=== PATIENT | female | born 1985 | race Caucasian/White ===

== ENCOUNTER 2023-04-01 14:42 | Outpatient (AMB) | payer BC, SELFPAY ==
--- NOTE | 2023-04-01 14:44 | A.OFFVIS_ITS ---
Intake Vital Signs 3 04/01/23 14:55 Height 5 ft 2 in Weight 152 lb BMI 27.8 BP 120/60 Blood Pressure Location Lt brachial Position Sitting Intake Visit Reasons: recurrent hernia ECW Intake Note: Patient is seen in office for recurrent ventral hernia. 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 This was previously repaired without mesh in 2019 but soon after began to redevelop with a small lump occasionally noted. Over time this has become more noticeable and associated with slight discomfort. She denies nausea or vomiting but does have occasional heartburn. Her bowel habits are irregular but unchanged. She is requesting repair of this recurrent ventral hernia. [facility] Surgical History History of ventral hernia repair (06/04/18) Family History Paternal Grandmother Mouth cancer Maternal Grandfather Lung cancer Review of Systems Const All systems reviewed & are unremarkable except as noted in HPI and below Physical Exam Const General: no acute distress and well developed Orientation/consciousness: patient oriented x3 Limitations: no limitations HEENT Head: Yes normocephalic and Yes atraumatic Resp Effort & Inspection: normal respiratory effort GI Inspection: Yes normal to inspection Palpation (GI): Soft to palpation, nontender, no guarding and not rigid Percussion: Yes normal to percussion Auscultation: normal bowel sounds Abdomen image: 2 1. Ventral hernia measuring 2 cm in diameter easily reducible, nontender to palpation, no skin changes noted. Skin General skin exam: no rashes or lesions noted Neuro General: patient oriented x3 Extrem General: Yes no clubbing, cyanosis or edema Assessment & Plan Assessment & Plan (1) Recurrent ventral hernia: Code(s): K43.2 - Incisional hernia without obstruction or gangrene Plan 38-year-old female patient presenting with a recurrent ventral hernia, easily reducible with light pressure. I recommended a repair with mesh as a short-stay surgery. After discussion of the procedure, risks, and alternatives, she consents to the repair of the recurrent ventral hernia with mesh. Coding Level of Care Code New Pt Level 4 (67184) Diagnoses Recurrent ventral hernia K43.2
[2023-04-01 14:55] VITALS: BP 120/60; BMI 27.8
== END 2023-04-01 15:13 | disposition home or self-care (01) ==
PROVIDERS: PCP Family Medicine; Referring Provider Family Medicine; Visit Provider Surgery
DX: K43.2 Incisional hernia without obstruction or gangrene (principal)
CPT/HCPCS: 99204

== ENCOUNTER → 2023-04-01 14:42 | Outpatient (BNVA) | payer BC, SELFPAY | PROVIDERS: PCP Family Medicine; Visit Provider Surgery ==

== ENCOUNTER 2023-04-16 06:01 | Day surgery (SDC) | payer BC, SELFPAY ==
[2023-04-14 09:42] VITALS: BMI 27.8
--- NOTE | 2023-04-15 09:27 | HO.ANESPROP2 ---
Documented by User: Colleen Rivera NP 04/15/23 09:27 HPI - Anesthesia Eval Consult details Narrative: 38yo F for Repair Recurrent Hernia Ventral Reducible w/ mesh PMFSH Active Problems Active Problems: All Active Problems (Updated 04/01/23 @ 15:08 by Seth Nguyen MD) Recurrent ventral hernia (Acute) Family History Family History Paternal Grandmother Mouth cancer Maternal Grandfather Lung cancer Surgical History Surgical History History of ventral hernia repair (06/04/18) Social History Social History Patient Tobacco Use Status: Never used Tobacco Use of substances other than those prescribed or required for medical reasons: No Are you DNR?: No Advance Directives: No Advance Directives Information Provided: Yes Meds Allergies Allergy/AdvReac Type Severity Reaction Status Date / Time penicillin V Allergy Unknown mother is Verified 04/01/23 14:52 allergic No Known Allergies Allergy Verified 04/16/23 06:55 [No Known Allergies*] Home Medications Medication Instructions Recorded Confirmed Last Taken Type sumatriptan succinate 100 mg tablet 100 mg PO DIRECTED 11/30/21 Unknown History Exam Height,Weight and Vital Signs: Height 5 ft 2 in Weight 68.946 kg Assessment and Plan Assessment Anesthesia Assessment: Chart Reviewed Documented by User: Melvina Ram MD 04/16/23 07:30 PMFSH Active Problems Active Problems: All Active Problems (Updated 04/01/23 @ 15:08 by Seth Nguyen MD) Recurrent ventral hernia (Acute) migraine headaches Family History Family History Paternal Grandmother Mouth cancer Maternal Grandfather Lung cancer Surgical History Surgical History History of ventral hernia repair (06/04/18) Social History Social History Patient Tobacco Use Status: Never used Tobacco Use of substances other than those prescribed or required for medical reasons: No Are you DNR?: No Advance Directives: No Advance Directives Information Provided: Yes Meds Allergies Allergy/AdvReac Type Severity Reaction Status Date / Time penicillin V Allergy Unknown mother is Verified 04/01/23 14:52 allergic No Known Allergies Allergy Verified 04/16/23 06:55 [No Known Allergies*] Home Medications Medication Instructions Recorded Confirmed Last Taken Type sumatriptan succinate 100 mg tablet 100 mg PO DIRECTED 11/30/21 Unknown History
[2023-04-16 06:24] VITALS: BMI 27.8
[2023-04-16 06:38] LABS: UPreg QC Valid YES; Urine Pregnancy NEGATIVE (NEGATIVE)
[2023-04-16 06:39] VITALS: BP 109/47; PULSE 73; RESP 16; TEMP 37.2; O2SAT 98
[2023-04-16] MEDS: Lactated Ringers 1,000 ML 100 ML IVCONT (06:52)
--- NOTE | 2023-04-16 07:26 | MHC.SHP ---
Pre-Procedural Eval Section A Date of Service: 04/16/23 The patient is an INPATIENT: No Changes since office visit: Yes Patient answered all questions; No Cold of Flu in the past 2 weeks, No New Medical Problems and No Changes in Medication The History & Physical has been completed within 30 days and I have reviewed it.: Yes Section B Chief Complaint: Incisional hernia without obstruction or gangrene Allergies: Allergies Allergy/AdvReac Type Severity Reaction Status Date / Time penicillin V Allergy Unknown mother is Verified 04/01/23 14:52 allergic No Known Allergies Allergy Verified 04/16/23 06:55 [No Known Allergies*] Plan Diagnosis/Plan: Unchanged I have reviewed the history and physical and performed a pertinent physical examination on my patient. No changes have occurred unless specified. Time Spent With Patient Time: Total time managing care of this patient today ____ minutes.
--- NOTE | 2023-04-16 07:30 | P.CONAN_ITS ---
[facility] Active Problems Active Problems: All Active Problems Recurrent ventral hernia (Acute) Family History Family History Paternal Grandmother Mouth cancer Maternal Grandfather Lung cancer Surgical History Surgical History History of ventral hernia repair (06/04/18) History of Problems with Anesthesia: No Social History Social History Patient Tobacco Use Status: Never used Tobacco Use of substances other than those prescribed or required for medical reasons: No Are you DNR?: No Advance Directives: No Advance Directives Information Provided: Yes Meds Allergies Allergy/AdvReac Type Severity Reaction Status Date / Time penicillin V Allergy Unknown mother is Verified 04/01/23 14:52 allergic No Known Allergies Allergy Verified 04/16/23 06:55 [No Known Allergies*] Active Medications: Current Medications Lactated Ringer's (Lr) 1,000 mls @ 100 mls/hr IVCONT .Q10H MARÍA Last Admin: 04/16/23 06:52 Dose: 100 mls/hr Home Medications Medication Instructions Recorded Confirmed Last Taken Type sumatriptan succinate 100 mg tablet 100 mg PO DIRECTED 11/30/21 Unknown History Exam Height,Weight and Vital Signs: Height 5 ft 2 in Weight 69.003 kg Last Vital Signs Temp 98.9 F 04/16/23 06:39 Pulse 73 04/16/23 06:39 Resp 16 04/16/23 06:39 BP 109/47 L 04/16/23 06:39 Pulse Ox 98 04/16/23 06:39 O2 Del Method Room Air 04/16/23 06:39 Pertinent Lab Results Pertinent Lab Results: Laboratory Tests 04/16/23 06:15 Urine Test NEGATIVE Airway Mallampati Class: II TM Dist: >3cm Neck ROM: Full Loose/Missing/Broken Teeth: No Heart: RRR Lungs: CTA Assessment and Plan Assessment Anesthesia Assessment: Anesthesia Plan Discussed and Chart Reviewed Final Anesthetic Review History of Problems with Anesthesia: No NPO: Yes ASA Class: II Final Preanesthetic Review: Meds/Allgs Chart Reviewed, Consent Obtained/Reviewed and Anes Risks/Benef Reviewed Patient Risk: Low Procedure Risk: Low Anesthetic Plan Anesthetic Plan: GA Disposition: Standard PACU
--- NOTE | 2023-04-16 08:14 | P.OP_ITS ---
Operative Note Operative Note Date of Service: 04/16/23 Narrative: Preoperative diagnosis: Recurrent reducible ventral hernia Postoperative diagnosis: Same Procedure: Repair of reducible recurrent ventral hernia with mesh Surgeon: Seth Nguyen MD General Road Supervisor: Gwendolyn Vasquez PA-C Anesthesia: General, LMA Indications for procedure: 38-year-old female patient presenting with a prior history of a repair of a small ventral hernia without mesh returning with a recurrent hernia at the exact same location. 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 Feels that the hernias increasing in size and causing some discomfort. Operative findings: Small recurrent ventral hernia with a defect measuring approximately 0.5 cm in diameter. This was repaired using a 4.6 cm round Ventralex mesh. Specimen: None Estimated blood loss: Less than 2 mL Complications: None Procedure details: Patient was brought to the OR and placed in a supine position. After administering general anesthesia the patient's abdomen was prepped with ChloraPrep and draped in a sterile fashion. A surgical time-out was called the consent confirmed. Patient received preoperative antibiotics and Venodyne boots were in place. Local anesthesia was infiltrated over the previous incision. Incision was then made over the exact same location in the upper midline. This carried out through subcutaneous tissue up to the hernia sac. This was then dissected down to the fascia circumferentially. The hernia sac was reduced into the abdominal cavity. A preperitoneal space was then created using a combination of blunt and sharp dissection. Hemostasis was assured at all times using electrocautery. The 4.6 cm round Ventralex mesh was then obtained. This was deployed within the preperitoneal space secured to the fascia using a 0 Tycron suture. Fascia was closed over the mesh using [id number] 0 Tycron sutures. Wounds were then irrigated with saline solution. Additional local was infiltrated into the muscle and subcutaneous tissue. Subcutaneous tissue and dermis were then reapproximated using interrupted 3-0 Polysorb sutures. Skin was closed using a running subcuticular 4-0 Polysorb suture. Steri-Strips, 2 x 2 gauze and Tegaderm were then applied. The patient tolerated the procedure well. Sponge, instrument, needle counts reported as correct. The patient was transferred to PACU in stable condition.
[2023-04-16 08:28] VITALS: BP 114/63; PULSE 82; RESP 18; TEMP 36.6; O2SAT 99
[2023-04-16 08:33] VITALS: BP 113/58; PULSE 82; RESP 16; O2SAT 99
[2023-04-16 08:38] VITALS: BP 111/58; PULSE 83; RESP 16; O2SAT 98
[2023-04-16 08:43] VITALS: BP 108/56; PULSE 69; RESP 20; TEMP 36.7; O2SAT 100
[2023-04-16] MEDS: oxyCODONE HCl Immed Release 5 MG TABLET PO (08:43)
[2023-04-16 08:58] VITALS: BP 107/61; PULSE 62; RESP 18; TEMP 36.4; O2SAT 99
== END 2023-04-16 09:32 | disposition home or self-care (01) ==
PROVIDERS: Nurse Practitioner; PCP Family Medicine; Visit Provider Surgery
PROC: (CPT 49613; principal; 2023-04-16 07:30)
DX: K43.2 Incisional hernia without obstruction or gangrene (principal); Z79.899 Other long term (current) drug therapy; Z88.0 Allergy status to penicillin
CPT/HCPCS: 49613; 81025; C1781; J0131; J0665; J0690; J1100; J1885; J2250; J2371; J2405; J2704; J3010

== ENCOUNTER → 2023-04-16 06:01 | Outpatient (BNV) | payer BC, SELFPAY | PROVIDERS: PCP Family Medicine; Visit Provider Surgery | DX: K43.2 Incisional hernia without obstruction or gangrene (principal) | CPT/HCPCS: 49591 ==

== ENCOUNTER 2023-04-24 15:29 | Outpatient (AMB) | payer BC, SELFPAY ==
--- NOTE | 2023-04-24 15:30 | A.OFFVIS_ITS ---
Intake Vital Signs 3 04/24/23 15:36 Height 5 ft 2 in Weight 150 lb BMI 27.4 BP 119/67 Blood Pressure Location Lt brachial Position Sitting Pulse 79 Intake Visit Reasons: S/p repair recurrent ventral hernia w/ mesh Intake Note: Patient is seen in office for post op assessment post recurrent ventral hernia repair. 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 She tolerated the procedure well and does feel improved today. She did have some soreness in the back recently. Denies any nausea, vomiting, fever or chills. She denies any bleeding or discharge from the incision. [facility] Surgical History S/P repair of recurrent ventral hernia (04/16/23) History of ventral hernia repair (06/04/18) Family History Paternal Grandmother Mouth cancer Maternal Grandfather Lung cancer Social History Patient Tobacco Use Status: Never used Tobacco Physical Exam Vital Signs: Last Vital Signs Pulse 79 04/24/23 15:36 BP 119/67 04/24/23 15:36 BMI result Body Mass Index 27.4 Const General: no acute distress Nutritional Appearance: well nourished Orientation/consciousness: patient oriented x3 Resp Effort & Inspection: normal respiratory effort GI Other: Well-healed midline incision without redness or discharge. Slight swelling is noted to the right of midline but no changes are noted with Valsalva maneuvers. Inspection: Yes normal to inspection Palpation (GI): Soft to palpation, nontender and no guarding Abdomen image: 2 1. Incision in the upper midline Skin General skin exam: no rashes or lesions noted Neuro General: patient oriented x3 Assessment & Plan Assessment & Plan (1) Recurrent ventral hernia: Code(s): K43.2 - Incisional hernia without obstruction or gangrene Plan 38-year-old female patient returning 1 week following repair of a ventral hernia in the upper midline. She tolerated the procedure well and her wounds are healing nicely. There is no evidence of recurrent disease at this time. She should continue to avoid lifting greater than 10 lb and return in 1 month for follow-up examination. She is welcome to call sooner for any new concerns. Coding Level of Care Code Global (34342) Diagnoses Recurrent ventral hernia K43.2
[2023-04-24 15:36] VITALS: BP 119/67; PULSE 79; BMI 27.4
== END 2023-04-24 15:47 | disposition home or self-care (01) ==
PROVIDERS: PCP Family Medicine; Visit Provider Surgery
DX: K43.2 Incisional hernia without obstruction or gangrene (principal)
CPT/HCPCS: 99212

== ENCOUNTER → 2023-04-24 15:29 | Outpatient (BNVA) | payer BC, SELFPAY | PROVIDERS: PCP Family Medicine; Visit Provider Surgery ==

== ENCOUNTER 2023-05-22 15:00 | Outpatient (AMB) | payer BC, SELFPAY ==
--- NOTE | 2023-05-22 15:01 | A.OFFVIS_ITS ---
Intake Vital Signs 05/22/23 15:08 Height 5 ft 2 in Weight 151 lb 4 oz BMI 27.7 BP 144/58 H Blood Pressure Location Lt brachial Position Sitting Pulse 71 Intake Visit Reasons: 1 mth follow up repair recurrent ventral hernia Intake Note: Patient is seen in office for 1 month follow up, following recurrent ventral hernia repair. Pt c/o: denies any concerns or changes since last visit Product Tester Required: No Accompanied by: Self / Same As Patient Allergies penicillin V Allergy (Unknown, Verified 05/22/23 15:08) mother is allergic No Known Allergies [No Known Allergies*] Allergy (Verified 05/22/23 15:08) HPI HPI Comments History of Present Illness Details Patient returns 1 month following repair of a ventral hernia with mesh. She tolerated the procedure well and her wounds are healing nicely. She denies any problems since her last visit. [facility] Surgical History S/P repair of recurrent ventral hernia (04/16/23) History of ventral hernia repair (06/04/18) Family History Paternal Grandmother Mouth cancer Maternal Grandfather Lung cancer Social History Patient Tobacco Use Status: Never used Tobacco Physical Exam GI Other: Abdominal incision is clean, dry, and intact without redness or discharge. No hernias noted with Valsalva maneuvers. Assessment & Plan Assessment & Plan (1) Recurrent ventral hernia: Code(s): K43.2 - Incisional hernia without obstruction or gangrene Plan 38-year-old female patient returning 1 month following repair of a ventral hernia with mesh. She tolerated the procedure well and her wounds are healing nicely. There is no evidence of recurrent hernias on examination today. She may resume normal activity without restriction and should follow up as needed. Coding Level of Care Code Global (99820) Diagnoses Recurrent ventral hernia K43.2
[2023-05-22 15:08] VITALS: BP 144/58; PULSE 71; BMI 27.7
== END 2023-05-22 15:30 | disposition home or self-care (01) ==
PROVIDERS: PCP Family Medicine; Visit Provider Surgery
DX: K43.2 Incisional hernia without obstruction or gangrene (principal)
CPT/HCPCS: 99212

== ENCOUNTER → 2023-05-22 15:00 | Outpatient (BNVA) | payer BC, SELFPAY | PROVIDERS: PCP Family Medicine; Visit Provider Surgery ==